=== PATIENT | male | born 1955 | race Caucasian/White ===

== ENCOUNTER 2017-01-10 12:48 | Emergency (ER) | payer MEDICARE | END 2017-01-10 16:33 | disposition left against medical advice (07) | LOC: FER 12:48 | DX: M25.561 Pain in right knee (principal); M25.521 Pain in right elbow; M17.11 Unilateral primary osteoarthritis, right knee; M19.021 Primary osteoarthritis, right elbow | CPT/HCPCS: 73080; 73564 ==

== ENCOUNTER 2017-04-30 14:49 | Emergency (ER) | payer MEDICARE | END 2017-04-30 15:10 | disposition home or self-care (01) | LOC: FER 14:49 | DX: I46.9 Cardiac arrest, cause unspecified (principal); I25.2 Old myocardial infarction | CPT/HCPCS: 92950; 99285; J0282 ==